=== PATIENT | female | born 1970 | race Caucasian/White ===

== ENCOUNTER 2019-01-05 08:39 | Emergency (ER) | payer MEDICAID ==
[~2019-01-05] VITALS: Ht 152.4 cm; Wt 56.8 kg
[2019-01-05 08:44] VITALS: BP 109/56
--- NOTE | 2019-01-05 09:33 | NUR ---
Patient seen and assessed by provider.
== END 2019-01-05 09:34 | disposition home or self-care (01) ==
LOC: ER 08:40
DX: F10.10 Alcohol abuse, uncomplicated (principal); M54.9 Dorsalgia, unspecified; F17.200 Nicotine dependence, unspecified, uncomplicated; Z98.890 Other specified postprocedural states; Z60.2 Problems related to living alone; Y90.9 Presence of alcohol in blood, level not specified
CPT/HCPCS: 99281

== ENCOUNTER 2019-09-04 14:06 | Emergency (ER) | payer MEDICAID ==
[~2019-09-04] VITALS: Ht 152.4 cm; Wt 60.0 kg
[2019-09-04 14:30] VITALS: BP 101/60
[2019-09-04] MEDS ORDERED: IBUP-1984 PO (15:50)
== END 2019-09-04 16:36 | disposition home or self-care (01) ==
LOC: ER 14:07
DX: S52.502A Unspecified fracture of the lower end of left radius, initial encounter for closed fracture (principal); Z79.1 Long term (current) use of non-steroidal anti-inflammatories (NSAID); Z98.890 Other specified postprocedural states; Z60.2 Problems related to living alone; W03.XXXA Other fall on same level due to collision with another person, initial encounter; Y93.89 Activity, other specified; Y92.89 Other specified places as the place of occurrence of the external cause; Y99.8 Other external cause status
CPT/HCPCS: 29125; 73130; 99284

== ENCOUNTER 2021-10-05 22:35 | Emergency (ER) | payer MEDICAID ==
[~2021-10-05] VITALS: Ht 152.4 cm; Wt 57.6 kg
[2021-10-05 22:59] VITALS: BP 100/55
== END 2021-10-06 00:11 | disposition left against medical advice (07) ==
LOC: ER 22:36
DX: H53.8 Other visual disturbances (principal); Z53.21 Procedure and treatment not carried out due to patient leaving prior to being seen by health care provider